=== PATIENT | female | born 1935 | race Caucasian/White ===

== ENCOUNTER 2017-03-26 19:06 | Emergency (ER) | payer MEDICARE, OTHER ==
[2017-03-26 19:25] LABS: BASOPHIL 0.3 % (0-2); EOSINOPHIL 2.5 % (0-7); HCT 40.6 % (37.0-47.0); HGB 14.2 g/dl (12.5-16.0); LYMPHOCYTE 26.2 % (15-48); MCH 31.3 pg (25.0-31.0); MCV 89.4 fL (78.0-100.0); MONOCYTE 7.7 % (0-12); MPV 9.9 fL (6.0-9.5); NEUTROPHIL 63.3 % (41-80); PLT 254 K/uL (150-400); RBC 4.54 M/uL (4.20-5.40); RDW 13.9 % (11.5-14.0)
[2017-03-26 19:55] LABS: CKMB 1.24 ng/mL (0.97-4.94); MYOGLOBIN 25 ng/mL (26-65); TROPONIN T < 0.010 ng/mL
[2017-03-26 19:56] LABS: ALBUMIN 4.5 g/dL (3.4-4.8); BILIRUBIN - TOTAL 0.4 mg/dL (0.1-1.0); CREATININE 1.2 mg/dL (0.5-1.0); MAGNESIUM 1.95 mg/dL (1.40-2.10); POTASSIUM 3.4 mmol/L (3.5-5.1); TOTAL PROTEIN 7.5 g/dL (6.4-8.3)
[2017-03-26 19:57] LABS: PRO-BNP 1005 pg/mL (0-450)
[2017-03-26 20:10] LABS: INR 1.05 (0.9-1.2); PROTHROMBIN TIME 13.3 SECONDS (11.7-14.0); PTT 26.9 SECONDS (23.2-31.4)
== END 2017-03-26 22:18 | disposition other institution (70) ==
LOC: FER 19:06
PROVIDERS: Emergency Medicine Emergency Medical Services
DX: I20.0 Unstable angina (principal); I10 Essential (primary) hypertension; M54.2 Cervicalgia; E78.5 Hyperlipidemia, unspecified; Z86.73 Personal history of transient ischemic attack (TIA), and cerebral infarction without residual deficits; Z88.2 Allergy status to sulfonamides; Z82.49 Family history of ischemic heart disease and other diseases of the circulatory system
CPT/HCPCS: 36415; 71010; 80053; 82550; 82553; 83735; 83874; 83880; 84484; 85025; 85610; 85730; 93005; J2270; J2405